=== PATIENT | female | born 1965 | race African-American/Black ===

== ENCOUNTER 2019-03-20 10:20 | Inpatient (IN) | payer BC ==
[2019-03-20] MEDS ORDERED: FENTANYL CITR 100 MCG/2 ML ONE (10:50)
[2019-03-20] MEDS ORDERED: NA CHLORIDE 0.9% 500 ML ONE (10:50)
[2019-03-20 11:01] LABS: Absolute Lymphocytes (CBC) 2.7 K/uL (0.7-4.9); Basophils % 0.4 % (0-1.3); Lymphocytes % 34.5 % (15.3-44.8); MPV 9.2 fL (7.6-11.3); Protime INR 1.11
[2019-03-20 11:13] LABS: ALT/SGPT 51 U/L (12-78); AST/SGOT 31 U/L (15-37); Albumin 4.1 g/dL (3.4-5.0); Alkaline Phosphatase 109 U/L (45-117); BUN Blood Urea Nitrogen 36 mg/dL (7-18); Bicarbonate 21 mmol/L (21-32); Bilirubin Direct 0.1 mg/dL (0-0.2); Bilirubin Total 0.2 mg/dL (0.2-1.0); Glucose Level 126 mg/dL (74-106); Magnesium 1.7 mg/dL (1.8-2.4); NT PRO-BNP 192 pg/mL (<125); Potassium 4.9 mmol/L (3.5-5.1); Protein, Total 8.5 g/dL (6.4-8.2); Sodium Level 140 mmol/L (136-145); Troponin (Emerg Dept Use Only) < 0.02 ng/mL (0.0-0.045)
--- NOTE | 2019-03-20 11:14 | RAD REPORT ---
EXAM DESCRIPTION: Bucky Single View03/20/2019 11:00 am CLINICAL HISTORY: Chest pain COMPARISON: 2010 FINDINGS: The lungs appear clear of acute infiltrate. The heart is normal size Lucency within the lateral left upper quadrant abutting the diaphragm likely represent air within bow el rather than free air. This can be confirmed with a lateral upright view of the chest
--- NOTE | 2019-03-20 13:23 | EDPHYS ---
Physician Documentation [facility] Name: Yesica Almazan Age: 53 yrs Sex: Female : 1965 Arrival Date: 03/20/2019 Time: 10: Bed 6 Private MD: Odin Steele H ED Physician Milton Frias HPI: 03/20 13:13 This 53 yrs old Black Female presents to ER via Wheelchair with complaints of Chest jr8 Pain. 13:13 The patient or guardian reports chest pain that is located primarily in the substernal jr8 area. Onset: acutely, today. The pain radiates to the left arm, the left shoulder, left neck, left jaw. Associated signs and symptoms: Pertinent positives: dizziness, nausea, near-syncope. The chest pain is described as a pressure. Duration: The patient or guardian reports a single episode, that is still ongoing. Modifying factors: The symptoms are alleviated by nothing. the symptoms are aggravated by nothing. Severity of pain: At its worst the pain was moderate in the emergency department the pain is unchanged. The patient has not experienced similar symptoms in the past. The patient has not recently seen a physician. Historical: - Allergies: 10:30 Keflex; la1 - PMHx: 10:30 Hypertension; High Cholesterol; Hypothyroidism; GERD; la1 - Immunization history:: Adult Immunizations up to date. - Social history:: Smoking status: Patient/guardian denies using tobacco. - Ebola Screening: : No symptoms or risks identified at this time. ROS: 13:13 Eyes: Negative for injury, pain, redness, and discharge, ENT: Negative for injury, jr8 pain, and discharge, Neck: Negative for injury, pain, and swelling, Respiratory: Negative for shortness of breath, cough, wheezing, and pleuritic chest pain, Abdomen/GI: Negative for abdominal pain, nausea, vomiting, diarrhea, and constipation, Back: Negative for injury and pain, MS/Extremity: Negative for injury and deformity, Skin: Negative for injury, rash, and discoloration. 13:13 Cardiovascular: Positive for chest pain, Negative for edema, orthopnea, palpitations, paroxysmal nocturnal dyspnea. 13:13 Neuro: Positive for near syncope. Exam: 13:13 Eyes: Pupils equal round and reactive to light, extra-ocular motions intact. Lids and jr8 lashes normal. Conjunctiva and sclera are non-icteric and not injected. Cornea within normal limits. Periorbital areas with no swelling, redness, or edema. ENT: Nares patent. No nasal discharge, no septal abnormalities noted. Tympanic membranes are normal and external auditory canals are clear. Oropharynx with no redness, swelling, or masses, exudates, or evidence of obstruction, uvula midline. Mucous membranes moist. Neck: Trachea midline, no thyromegaly or masses palpated, and no cervical lymphadenopathy. Supple, full range of motion without nuchal rigidity, or vertebral point tenderness. No Meningismus. Cardiovascular: Regular rate and rhythm with a normal S1 and S2. No gallops, murmurs, or rubs. Normal PMI, no JVD. No pulse deficits. Respiratory: Lungs have equal breath sounds bilaterally, clear to auscultation and percussion. No rales, rhonchi or wheezes noted. No increased work of breathing, no retractions or nasal flaring. Abdomen/GI: Soft, non-tender, with normal bowel sounds. No distension or tympany. No guarding or rebound. No evidence of tenderness throughout. Back: No spinal tenderness. No costovertebral tenderness. Full range of motion. Skin: Warm, dry with normal turgor. Normal color with no rashes, no lesions, and no evidence of cellulitis. MS/ Extremity: Pulses equal, no cyanosis. Neurovascular intact. Full, normal range of motion. Neuro: Awake and alert, GCS 15, oriented to person, place, time, and situation. Cranial nerves II-XII grossly intact. Motor strength 5/5 in all extremities. Sensory grossly intact. Cerebellar exam normal. Normal gait. 13:13 Constitutional: The patient appears alert, awake, in obvious pain, uncomfortable. jr8 Vital Signs: 10:31 BP 69 / 52; Pulse 66; Resp 16; Temp 97.6; Pulse Ox 98% on R/A; Weight 59.87 kg; Height la1 5 ft. 1 in. (154.94 cm); 10:44 BP 96 / 58; Pulse 67; Resp 22; Pulse Ox 100% on R/A; ph 11:50 BP 95 / 59; Pulse 65; Resp 18; Pulse Ox 97% on R/A; ph 13:00 BP 89 / 51; Pulse 59; Resp 18; Pulse Ox 97% on R/A; ph 14:18 BP 96 / 60; Pulse 66; Resp 20; Pulse Ox 100% on R/A; ph 15:02 BP 93 / 51; Pulse 63; Resp 18; Temp 97.4; Pulse Ox 98% on R/A; ph 15:42 BP 94 / 54; Pulse 62; Resp 18; Temp 97.4; Pulse Ox 99% on R/A; ph 10:31 Body Mass Index 24.94 (59.87 kg, 154.94 cm) MDM: 10:40 Patient medically screened. jr8 13:13 The patient was not given aspirin in the Emergency Department. Patient reports taking jr8 aspirin within the past 24 hours. Data reviewed: vital signs, nurses notes, lab test result(s), EKG, radiologic studies, plain films, ultrasound. Data interpreted: Pulse oximetry: on room air is 97 %. Interpretation: normal. Counseling: I had a detailed discussion with the patient and/or guardian regarding: the historical points, exam findings, and any diagnostic results supporting the discharge/admit diagnosis, lab results, radiology results, the need for further work-up and treatment in the hospital. ED course: Patients pain has improved. Discussed case with radiology and nephrology along with Dr. Frias. Based on current assessment and renal function, will hold on aortogram and will do echo and US of aorta for now. Will admit to hospitalist . 03/20 10:40 Order name: Basic Metabolic Panel; Complete Time: 11: in03/20 10:40 Order name: CBC with Diff; Complete Time: :03/20 10:40 Order name: LFT's; Complete Time: 11:03/20 10:40 Order name: Magnesium; Complete Time: 11:03/20 10:40 Order name: NT PRO-BNP; Complete Time: 11: in03/20 10:40 Order name: PT-INR; Complete Time: 11:03/20 10:40 Order name: Troponin (emerg Dept Use Only); Complete Time: 11:03/20 10:40 Order name: XRAY Chest (1 view); Complete Time: 11:03/20 11:28 Order name: Echo w/ Doppler [facility] 03/20 11:28 Order name: US Aorta Ivc Iliacs Complete; Complete Time: 14:37 [facility] 03/20 13:59 Order name: CT Abd/Pelvis - Without Contrast [facility] 03/20 14:51 Order name: CT; Complete Time: 15:02 EDMS 03/20 10:40 Order name: EKG; Complete Time: 10:42 [facility] 03/20 10:40 Order name: Cardiac monitoring; Complete Time: 10:44 [facility] 03/20 10:40 Order name: EKG - Nurse/Tech; Complete Time: 10:44 in03/20 10:40 Order name: IV Saline Lock; Complete Time: 10:44 in03/20 10:40 Order name: Labs collected and sent; Complete Time: 10:44 in03/20 10:40 Order name: O2 Per Protocol; Complete Time: 10:44 in03/20 10:40 Order name: O2 Sat Monitoring; Complete Time: 10:44 la1 Administered Medications: 10:58 Drug: NS 0.9% 500 ml Route: IV; Rate: bolus; Site: right antecubital; ph 13:54 Follow up: Response: No adverse reaction; IV Status: Completed infusion; IV Intake: ph 500ml 10:58 Drug: fentaNYL (PF) 25 mcg {Note: RASS 0.} Route: IVP; Site: right antecubital; ph 11:30 Follow up: Response: No adverse reaction ph 11:48 Drug: fentaNYL (PF) 25 mcg Route: IVP; Site: right antecubital; ph 12:30 Follow up: Response: No adverse reaction; RASS: Alert and Calm (0) ph 13:52 Drug: NS 0.9% 1000 ml Route: IV; Rate: 1000 ml; Site: right antecubital; ph 15:15 Follow up: Response: No adverse reaction; IV Status: Completed infusion; IV Intake: ph 1000ml Disposition: 16:14 Co-signature as Attending Physician, Milton Frias MD. rn Disposition: 03/20/19 13:22 Hospitalization ordered by Juancho Guzmán for Inpatient Admission. Preliminary diagnosis are Chest pain, unspecified, Hypotension, Acute kidney failure. - Bed requested for Intensive Care Unit. - Status is Inpatient Admission. ph - Condition is Stable. - Problem is new. - Symptoms have improved. UTI on Admission? No Signatures: Dispatcher [employer] EDWA Zee Garner Milton Antonio MD MD rn Roszak, Josh, PA PA jr8 Andres Gandhi RN RN la1 Rosaura Castillo RN RN ph Corrections: (The following items were deleted from the chart) 12:38 11:11 Angio Aorta For Dissection+CT.RAD.BRZ ordered. EDWA EDMS 13:14 13:13 Eyes: Pupils equal round and reactive to light, extra-ocular motions intact. Lids jr8 and lashes normal. Conjunctiva and sclera are non-icteric and not injected. Cornea within normal limits. Periorbital areas with no swelling, redness, or edema. ENT: Nares patent. No nasal discharge, no septal abnormalities noted. Tympanic membranes are normal and external auditory canals are clear. Oropharynx with no redness, swelling, or masses, exudates, or evidence of obstruction, uvula midline. Mucous membranes moist. Neck: Trachea midline, no thyromegaly or masses palpated, and no cervical lymphadenopathy. Supple, full range of motion without nuchal rigidity, or vertebral point tenderness. No Meningismus. Cardiovascular: Regular rate and rhythm with a normal S1 and S2. No gallops, murmurs, or rubs. Normal PMI, no JVD. No pulse deficits. Respiratory: Lungs have equal breath sounds bilaterally, clear to auscultation and percussion. No rales, rhonchi or wheezes noted. No increased work of breathing, no retractions or nasal flaring. Abdomen/GI: Soft, non-tender, with normal bowel sounds. No distension or tympany. No guarding or rebound. No evidence of tenderness throughout. Back: No spinal tenderness. No costovertebral tenderness. Full range of motion. Skin: Warm, dry with normal turgor. Normal color with no rashes, no lesions, and no evidence of cellulitis. MS/ Extremity: Pulses equal, no cyanosis. Neurovascular intact. Full, normal range of motion. Neuro: Awake and alert, GCS 15, oriented to person, place, time, and situation. Cranial nerves II-XII grossly intact. Motor strength 5/5 in all extremities. Sensory grossly intact. Cerebellar exam normal. Normal gait. jr8 13:48 13:22 Hospitalization Ordered by Juancho Guzmán DO for Inpatient Admission. Preliminary jr8 diagnosis is Chest pain, unspecified; Hypotension; Acute kidney failure. Bed requested for Telemetry/MedSurg (Inpatient). Status is Inpatient Admission. Condition is Stable. Problem is new. Symptoms have improved. UTI on Admission? No. jr8 14:21 13:48 03/20/2019 13:22 Hospitalization Ordered by Juancho Guzmán DO for Inpatient bd Admission. Preliminary diagnosis is Chest pain, unspecified; Hypotension; Acute kidney failure. Bed requested for Intensive Care Unit. Status is Inpatient Admission. Condition is Stable. Problem is new. Symptoms have improved. UTI on Admission? No. jr8 15:42 14:21 03/20/2019 13:22 Hospitalization Ordered by Juancho Guzmán DO for Inpatient ph Admission. Preliminary diagnosis is Chest pain, unspecified; Hypotension; Acute kidney failure. Bed requested for Intensive Care Unit. Status is Inpatient Admission. Condition is Stable. Problem is new. Symptoms have improved. UTI on Admission? No. bd
--- NOTE | 2019-03-20 13:23 | ER ---
Nurse's Notes [facility] Name: Yesica Almazan Age: 53 yrs Sex: Female : 1965 Arrival Date: 03/20/2019 Time: 10:21 Bed 6 Private MD: Odin Steele H Diagnosis: Chest pain, unspecified;Hypotension;Acute kidney failure Presentation: 03/20 10:30 Presenting complaint: Patient states: Started having heaviness in my chest at 0400, la1 took ASA 243, pain went away for about 15 minutes and came back. Transition of care: patient was not received from another setting of care. Onset of symptoms was March 20, 2019. Risk Assessment: Do you want to hurt yourself or someone else? Patient reports no desire to harm self or others. Initial Sepsis Screen: Does the patient meet any 2 criteria? No. Patient's initial sepsis screen is negative. Does the patient have a suspected source of infection? No. Patient's initial sepsis screen is negative. Care prior to arrival: None. 10:30 Method Of Arrival: Wheelchair la1 10:30 Acuity: ASTON 2 la1 Historical: - Allergies: 10:30 Keflex; la1 - PMHx: 10:30 Hypertension; High Cholesterol; Hypothyroidism; GERD; la1 - Immunization history:: Adult Immunizations up to date. - Social history:: Smoking status: Patient/guardian denies using tobacco. - Ebola Screening: : No symptoms or risks identified at this time. Screenin:46 Abuse screen: Denies threats or abuse. Denies injuries from another. Nutritional ph screening: No deficits noted. Tuberculosis screening: No symptoms or risk factors identified. Fall Risk None identified. Assessment: 10:33 Reassessment: EKG in triage at this time. la1 10:45 General: Appears in no apparent distress. uncomfortable, slender, well groomed, ph Behavior is calm, cooperative, appropriate for age, Denies fever, feeling ill. Pain: Complains of pain in mid-sternal area Pain radiates to left arm and jaw Quality of pain is described as pressure, Pain began 0400 this morning. Neuro: Level of Consciousness is awake, alert, obeys commands, Oriented to person, place, time, situation. Cardiovascular: Reports chest pain, diaphoresis, lightheadedness, nausea, shortness of breath, Capillary refill < 3 seconds in bilateral fingers Patient's skin is warm and dry. Chest pain quality is pressure, is located in anterior chest wall radiates to left arm(s) jaw(s). Respiratory: Airway is patent Respiratory effort is even, unlabored. GI: Reports nausea, vomiting. Derm: Skin is intact, Skin is pink, warm \T\ dry. 11:49 Reassessment: Patient appears in no apparent distress at this time. Patient and/or ph family updated on plan of care and expected duration. Pain level reassessed. Patient is alert, oriented x 3, equal unlabored respirations, skin warm/dry/pink. Pt resting quietly, awaiting US and CT scan. 12:45 Reassessment: Patient appears in no apparent distress at this time. Patient and/or ph family updated on plan of care and expected duration. Pain level reassessed. Patient is alert, oriented x 3, equal unlabored respirations, skin warm/dry/pink. 13:46 Reassessment: Patient appears in no apparent distress at this time. Patient and/or ph family updated on plan of care and expected duration. Pain level reassessed. Patient is alert, oriented x 3, equal unlabored respirations, skin warm/dry/pink. Dr Guzmán at bedside to speak w/ pt. 15:14 Reassessment: Patient appears in no apparent distress at this time. Patient and/or ph family updated on plan of care and expected duration. Pain level reassessed. Patient is alert, oriented x 3, equal unlabored respirations, skin warm/dry/pink. Report called to Estela GALLOWAY in ICU, pt to be taken to ICU via stretcher. Vital Signs: 10:31 BP 69 / 52; Pulse 66; Resp 16; Temp 97.6; Pulse Ox 98% on R/A; Weight 59.87 kg; Height la1 5 ft. 1 in. (154.94 cm); 10:44 BP 96 / 58; Pulse 67; Resp 22; Pulse Ox 100% on R/A; ph 11:50 BP 95 / 59; Pulse 65; Resp 18; Pulse Ox 97% on R/A; ph 13:00 BP 89 / 51; Pulse 59; Resp 18; Pulse Ox 97% on R/A; ph 14:18 BP 96 / 60; Pulse 66; Resp 20; Pulse Ox 100% on R/A; ph 15:02 BP 93 / 51; Pulse 63; Resp 18; Temp 97.4; Pulse Ox 98% on R/A; ph 15:42 BP 94 / 54; Pulse 62; Resp 18; Temp 97.4; Pulse Ox 99% on R/A; ph 10:31 Body Mass Index 24.94 (59.87 kg, 154.94 cm) la1 ED Course: 10:21 Patient arrived in ED. mr 10:22 Odin Steele DO is Private Physician. mr 10:31 Triage completed. la1 10:32 Arm band placed on left wrist. la1 10:40 Jose L Sampson PA is PHCP. jr8 10:40 Milton Frias MD is Attending Physician. jr8 10:41 EKG done, by office automation technician. reviewed by Jose L WAGONER. sm3 10:43 Rosaura Castillo, RN is Primary Nurse. ph 10:46 Patient has correct armband on for positive identification. Placed in gown. Bed in low ph position. Call light in reach. Side rails up X2. athletic monitor on. Pulse ox on. NIBP on. Door closed. Noise minimized. Warm blanket given. Head of bed elevated. 10:46 Inserted saline lock: 20 gauge in right antecubital area, using aseptic technique. ph Blood collected. Patient maintains SpO2 saturation greater than 95% on room air. 11:01 XRAY Chest (1 view) In Process Unspecified. EDMS 11:59 Radiology exam delayed due to on hold per Jose L. hr 12:46 Echocardiogram with Doppler done by compliance technician. tc 13:21 Juancho Guzmán DO is Hospitalizing Provider. jr8 13:52 No provider procedures requiring assistance completed. Patient admitted, IV remains in ph place. 14:12 US Aorta Ivc Iliacs Complete In Process Unspecified. EDMS Administered Medications: 10:58 Drug: NS 0.9% 500 ml Route: IV; Rate: bolus; Site: right antecubital; ph 13:54 Follow up: Response: No adverse reaction; IV Status: Completed infusion; IV Intake: ph 500ml 10:58 Drug: fentaNYL (PF) 25 mcg {Note: RASS 0.} Route: IVP; Site: right antecubital; ph 11:30 Follow up: Response: No adverse reaction ph 11:48 Drug: fentaNYL (PF) 25 mcg Route: IVP; Site: right antecubital; ph 12:30 Follow up: Response: No adverse reaction; RASS: Alert and Calm (0) ph 13:52 Drug: NS 0.9% 1000 ml Route: IV; Rate: 1000 ml; Site: right antecubital; ph 15:15 Follow up: Response: No adverse reaction; IV Status: Completed infusion; IV Intake: ph 1000ml Intake: 13:54 IV: 500ml; Total: 500ml. ph 15:15 IV: 1000ml; Total: 1500ml. ph Outcome: 13:22 Decision to Hospitalize by Provider. yesika 15:41 Admitted to ICU accompanied by nurse, accompanied by tech, via stretcher, room 7, on ph monitor, with chart, Report called to Estela GALLOWAY 15:41 critical 15:41 Instructed on the need for admit. 15:42 Patient left the ED. ph Signatures: Dispatcher [employer] Roxanne Lee Haley hr Roszak, Josh, CIARAN PA jrAlba Rojas, health and wellness sales consultant EKG Ttc Andres Gandhi RN RN la1 Rosaura Castillo RN RN Deanna Mathew3
[2019-03-20] MEDS ORDERED: NA CHLORIDE 0.9% 1,000 ML ONE (13:39)
--- NOTE | 2019-03-20 14:22 | RAD REPORT ---
EXAM DESCRIPTION: US - Aorta Ivc Iliacs Complete - 03/20/2019 2:11 pm CLINICAL HISTORY: hypotension;Chest pain COMPARISON: Renal Ultrasound-Complete dated 09/07/2016 FINDINGS: Visualize aspects of the abdominal aorta are normal in size. There is no finding to suspec t dissection. No free fluid collection. IMPRESSION: Negative study.
--- NOTE | 2019-03-20 14:23 | P.HP ---
Certification for Inpatient Patient admitted to: Inpatient With expected LOS: >2 Midnights Patient will require the following post-hospital care: None Practitioner: I am a practitioner with admitting privileges, knowledge of patient current condition, hospital course, and medical plan of care. Services: Services provided to patient in accordance with Admission requirements found in Title 42 Section 412.3 of the Code of Federal Regulations Patient History Date of Service: 03/20/19 Primary Care Provider: Dr. Steele; Cardiology-Dr. Stone Reason for admission: Chest pain, fatigue History of Present Illness: 53-year-old female presented to the emergency room with chest pain, fatigue. Patient with history of hypertension, hyperlipidemia, hypothyroidism and GERD with hiatal hernia. Patient woke up this morning with substernal chest pain around 4:00 a.m.. It woke her up from sleep. She rated the pain about a 7/10. Pain would radiate to the arms and back. Sensation to chest was a heaviness. She had some nausea. Upon getting up from bed she did feel lightheaded and dizzy. She had extreme fatigue. She took 3 aspirin without any improvement. Some shortness of breath noted. Over the past month, new medication includes Arb inhibitor-telmisartan. This was started about 1 month ago by Cardiology-Dr. Stone. She already takes Bisproprolol and Aldactone. She also reported some mild epigastric pain. She has a history of GERD. She reports some blood over the past 6 months from her rectum. She has been constipated. Last EGD colonoscopy done several years ago was unremarkable per patient. She came to the ER for further evaluation. In the ER patient was found to be hypotensive with blood pressure systolic around 70. She was given 2 boluses of normal saline. Blood pressure improved to 90-95 systolic with a map of 65. Patient shows a BUN of 36, creatinine 2.59 with a GFR of 23. Previous lab in 2017 showed creatinine 1.05 with a BUN of 16 and GFR 66. CBC unremarkable. Sodium 140, potassium 4.9. Magnesium low at 1.7. Troponin unremarkable. BMP 192. Chest x-ray she appears unremarkable. Abdominal aortic ultrasound unremarkable. CT abdomen pelvis pending at this time. Patient was admitted to ICU for further evaluation and treatment. When I saw the patient in the ER, she appeared stable. She did not appear septic. Blood pressures remain low, clinically stable. Patient reports a history of diabetes but no longer takes medication since she has lost weight. She does not take any nonsteroidal anti-inflammatories. She does report some problems with reflux. She does not check her blood pressures on a regular basis. Recent rotator cuff repair done November 2018. Allergies No Known Allergies Allergy (Unverified 08/28/16 22:09) Home medications list reviewed: Yes - Past Medical/Surgical History Diabetic: Yes -: Diabetes mellitus type 2, diet controlled -: Hypertension -: Chronic renal disease, stage 2 -: Hypothyroidism -: Hyperlipidemia -: GERD with hiatal hernia -: Right rotator cuff repair -: Hysterectomy -: Tummy tuck -: Tubal ligation -: Cholecystectomy Psychosocial/ Personal History: Patient is . She has 2 children. 1 . 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 - Family History Mother -: Heart disease, Hypertension, Diabetes - Social History Smoking Status: Never smoker Alcohol use: Yes CD- Drugs: No Caffeine use: Yes Place of Residence: Home Review of Systems General: Weakness, Malaise, As per HPI Eyes: Unremarkable ENT: Unremarkable Respiratory: Shortness of Breath, As per HPI Cardiovascular: Chest Pain, Light Headedness, As per HPI Gastrointestinal: Abdominal Pain, Constipation, As per HPI Genitourinary: Unremarkable Musculoskeletal: Unremarkable Integumentary: Unremarkable Neurological: Weakness, As per HPI Lymphatics: Unremarkable Physical Examination - Physical Exam General: Alert, In no apparent distress, Oriented x3, Cooperative HEENT: Atraumatic, Normocephalic, PERRLA, Other (Mild dry mucous membranes) Neck: Supple, No Thyromegaly Respiratory: Clear to auscultation bilaterally, Normal air movement Cardiovascular: Normal pulses, Regular rate/rhythm Gastrointestinal: Normal bowel sounds, Soft and benign, Non-distended, No masses , No rebound, No guarding, Tenderness (Mild pain to the epigastric region with deep palpation) Musculoskeletal: No erythema, No tenderness, No warmth Integumentary: No tenderness/swelling, No erythema, No warmth, No cyanosis Neurological: Normal speech, Normal strength at 5/5 x4 extr, Normal tone, Normal affect - Studies Laboratory Data (last 24 hrs) 03/20/19 10:40: PT 13.0 H, INR 1.11 03/20/19 10:40: WBC 7.8, Hgb 13.6, Hct 41.0, Plt Count 229 03/20/19 10:40: Sodium 140, Potassium 4.9, BUN 36 H, Creatinine 2.59 H, Glucose 126 H, Magnesium 1.7 L, Total Bilirubin 0.2, AST 31, ALT 51, Alkaline Phosphatase 109 Assessment and Plan - Plan Impression: Chest pain with hypotension likely related to medications Acute on chronic renal failure stage IV likely related to medication Epigastric pain likely related to GERD with hiatal hernia Diabetes mellitus type 2, diet controlled Hypothyroidism Hyperlipidemia Plan: Chest pain with hypotension likely related to medications: Patient admitted to ICU for closer monitoring. Blood pressures improved with IV fluid bolus in the emergency room. Will continue with aggressive IV fluid hydration. Suspect hypotension related to multiple blood pressure medication. Patient recently started telmisartan. Will hold telmisartan, Aldactone and Bispropanolol. Will monitor telemetry and cardiac enzymes. Will check echocardiogram, renal ultrasound to further evaluate. CT scan of the abdomen and pelvis without contrast pending at this time. DVT prophylaxis-SCDs started. Will consult cardiology and nephrology for further recommendation. Continue to monitor renal function. Patient may require fluid boluses of IV fluid. If severe patient may require vasopressor. Anticipate discharge in the next 3-5 days pending clinical improvement. Acute on chronic renal failure stage IV likely related to medication: Previous lab reviewed. GFR 66 in 2017. Now with acute renal failure related to medication-Aldactone and Arb inhibitor. Will hold both medication. Continue with IV fluids. Will obtain lab. Consult Nephrology to further evaluate. Await recommendation. Epigastric pain likely related to GERD with hiatal hernia: Abdominal ultrasound of the aorta and vessels unremarkable. Will obtain CT abdomen and pelvis to further evaluate. Likely underlying GERD with hiatal hernia. Hemoglobin stable at this time. Will provide PPI. Patient will likely require EGD in the future with her GI specialist. Diabetes mellitus type 2, diet controlled: Patient has good control of her diabetes with diet. She has lost significant amount weight. Previously on metformin. She no longer takes this medication. She stop medication-metformin 1 year ago. Hypothyroidism: Will check tsh and free T4. Restart home medication. Hyperlipidemia: Will check fasting lipid panel. Will hold medication at this time. Discharge Plan: Home Plan to discharge in: Greater than 2 days - Advance Directives Does patient have a Living Will: No Does patient have a Durable POA for Healthcare: No - Code Status/Comfort Care Code Status Assessed: Yes (Patient is full code) Time Spent Managing Pts Care (In Minutes): 55
--- NOTE | 2019-03-20 14:44 | RAD REPORT ---
EXAM DESCRIPTION: CT - Abdomen Pelvis Wo Contrast - 03/20/2019 2:34 pm CLINICAL HISTORY: Abdominal pain. ABD PAIN COMPARISON: Stone Protocol dated 08/28/2016 TECHNIQUE: CT imaging of the abdomen and pelvis was performed without contrast. Solid organ, bowel a nd vascular assessment is limited due to lack of IV and oral contrast. All CT scans are performed using dose optimization technique as appropriate and may include automated exposure control or mA/KV adjustment according to patient size. FINDINGS: The lower lung guillaume are clear.Cholecystectomy clips. The liver, spleen, pancreas, adrenal glands and kidneys are within normal limits for a limited non-co ntrast examination.15 mm benign-appearing right renal cyst. No bowel obstruction, free air, free fluid or abscess. The appendix is normal. Mild lower lumbar degenerative changes. IMPRESSION: No acute intra-abdominal or pelvic findings. A limited non-contrast examination was performed as detailed.
--- NOTE | 2019-03-20 14:52 | EKG ---
Test Date: 2019-03-20 Test Time: 10:38:37 [employer] Stock Clerk: JOSE MARIA MEASUREMENT RESULTS: Intervals: Rate: 68 [place]: 144 QRSD: 84 QT: 390 QTc: 414 [place]: P: 74 AZ: 144 QRS: 40 T: 72 INTERPRETIVE STATEMENTS: Normal sinus rhythm Normal ECG Compared to ECG 12/09/2014 15:23:56 No significant changes Electronically Signed On 03-20-19 14:51:41 CDT by Rahul French
--- NOTE | 2019-03-20 15:00 | ECHO ---
HEIGHT: 5 ft 1 in WEIGHT: 132 lb oz DATE OF STUDY: 03/20/[address]: Toni Sampson 2-DIMENSIONAL: YES M.MODE: YES DOPPLER: YES COLOR FLOW: YES TDS: NO PORTABLE: NO DEFINITY: NO BUBBLE STUDY: NO DIAGNOSIS: CHEST PAIN CARDIAC HISTORY: CATHERIZATION: NO SURGERY: NO PROSTHETIC VALVE: NO PACEMAKER: NO MEASUREMENTS (cm) DIASTOLIC (NORMALS) SYSTOLIC (NORMALS) IVSd 0.8 (0.6-1.2) LA Diam (1.9-4.0) LVEF 79% LVIDd 3.5 (3.5-5.7) LVIDs 1.9 (2.0-3.5) %FS 47% LVPWd 1.0 (0.6-1.2) Ao Diam (2.0-3.7) 2 DIMENSIONAL ASSESSMENT: RIGHT ATRIUM: NORMAL LEFT ATRIUM: NORMAL RIGHT VENTRICLE: NORMAL LEFT VENTRICLE: NORMAL TRICUSPID VALVE: NORMAL MITRAL VALVE: NORMAL PULMONIC VALVE: NORMAL AORTIC VALVE: NORMAL PERICARDIAL EFFUSION: NONE AORTIC ROOT: NORMAL LEFT VENTRICULAR WALL MOTION: NORMAL DOPPLER/COLOR FLOW: PHYSIOLOGIC TRICUSPID REGURGITATION. NORMAL RIGHT VENTRICULAR SYSTOLIC PRESSURE. COMMENTS: NORMAL 2D ECHOCARDIOGRAM WITH DOPPLER. TECHNOLOGIST: Vick TOBIN
[2019-03-20] MEDS ORDERED: ACETAMINOPHEN 500 MG TAB PO PRN (15:12)
[2019-03-20] MEDS ORDERED: ONDANSETRON 4 MG/2 ML VIAL IV PRN (15:12)
[2019-03-20] MEDS ORDERED: TRAMADOL HCL 50 MG TAB PO PRN (16:30)
[2019-03-20] MEDS: D5 0.45 NS 1,000 ML IV SCH (17:14)
[2019-03-20] MEDS ORDERED: NA CHLORIDE 0.9% 500 ML IV ONE (19:30)
--- NOTE | 2019-03-20 19:39 | CON ---
Chief Complaint: In general, feeling bad for 3 months, especially the last week. This morning, she started having pressure in her chest. History Of Present Illness: Ms. Almazan had right rotator cuff surgery in November. Ever since then, maegan mccann has been feeling bad. It got progressively worse. She drinks a gallon of water per day, but has n ot been eating much, and feeling listless, normally would have gone back to work except she never rec overed from her surgery. She denies tobacco use, excessive alcohol use. She takes blood pressure me dicines, but has not taken any blood pressure medicines today. I think we are little bit unsure as t o exactly what medicine she has been taking. Since she has been here in the hospital, cardiac enzyme s, EKG and echocardiography are all normal. Her blood pressure when she first came in was 69/52. Th e most recent blood pressure 95/59. She has had a 1.5 L bolus of saline. She is treated for hyperte nsion, dyslipidemia, hypothyroidism, and gastroesophageal reflux disease. Dr. Steele is her primary car e physician. She reports no allergies. Physical Examination: General: She is slender in build, alert, oriented, pleasant, not in any distress. Lungs: Clear. There is no carotid bruit. Heart: Within normal limits. Extremities: Normal distal pulses. No cyanosis, clubbing, or edema. Laboratory Data: Reveals a creatinine of 2.59. I do not have any recent blood tests on her from any other source. Her GFR is estimated to be 23. Troponin is less than 0.02. N-terminal proBNP is 192 , which is basically normal. She does not have a history of malignancy. She has a history of multip le childbirths, tubal ligation, hysterectomy, and cholecystectomy. Impression: My impression is that the patient is probably not having an acute coronary syndrome. He r renal failure is of utmost importance and hypotension. Most likely the renal failure coupled with the blood pressure medicine she is on, probably contributed to her hypotension. As much water she dr inks, I think, she is actually dehydrated, but she may be malnourished based on what she tells us. I will recommend that we get the list of her home medicines and see if we can get her blood pressure e levated. See if we can get her renal function to improve and Nephrology consult is pending for looki ng for signs of multiple myeloma and also looking for signs of hepatitis, although the liver function tests and prothrombin time are both normal. Some imaging studies, no doubt, will be done on the sung er and kidneys. Thank you very much for your kind referral of Ms. Almazan. I will follow her with you. MAEGAN/DOLORES Voice ID: [id number] Report ID: [id number]
[2019-03-20 19:58] LABS: CKMB Creatine Kinase MB 1.7 ng/mL (0.3-3.6); Creatine Phosphokinase 112 U/L (26-192); Troponin I < 0.02 ng/mL (0.0-0.045)
[2019-03-20] MEDS ORDERED: MAGNESIUM SULFATE 1 gm IVPB 1 GM/100 ML BAG IV ONE (20:24)
[2019-03-20 22:27] LABS: Urine Appearance CLEAR; Urine Bilirubin NEGATIVE (NEG); Urine Blood NEGATIVE (NEG); Urine Color YELLOW; Urine Glucose NEGATIVE (NEG); Urine Protein NEGATIVE (NEG); Urine Specific Gravity 1.015 (1.005-1.030); Urine Urobilinogen 0.2 mg/dL (0.2-1.0); Urine pH 5.5 (5.0-7.0)
[2019-03-20 22:28] LABS: Urine Microscopic Reflex ORDER UMIC
[2019-03-20 22:36] LABS: Urine Bacteria <20 /HPF (<20); Urine Culture Reflex Order REFLEXED; Urine RBC NONE SEEN /HPF (NONE SEEN)
[2019-03-20] MEDS ORDERED: TRAZODONE 50 MG TABLET PO ONE (23:10)
[2019-03-21] MEDS: D5 0.45 NS 1,000 ML IV SCH ×3 (01:12→22:15)
[2019-03-21 05:29] LABS: Basophils % 0.6 % (0-1.3); Hematocrit 32.7 % (36.0-45.0); Lymphocytes % 49.5 % (15.3-44.8); MPV 9.4 fL (7.6-11.3)
[2019-03-21 05:59] LABS: CKMB Creatine Kinase MB 1.4 ng/mL (0.3-3.6); Creatine Phosphokinase 97 U/L (26-192); Troponin I < 0.02 ng/mL (0.0-0.045)
[2019-03-21 06:00] LABS: Magnesium 1.9 mg/dL (1.8-2.4); Potassium 4.1 mmol/L (3.5-5.1); Thyroid Stimulating Hormone 0.752 uIU/mL (0.360-3.740)
[2019-03-21] MEDS: LEVOTHYROXINE SOD 0.1 MG TAB PO SCH (06:17)
[2019-03-21] MEDS: PANTOPRAZOLE 40MG TABLET PO SCH (07:40)
[2019-03-21] MEDS: HYDROCODONE/APAP 7.5/325 MG TAB PO PRN ×2 (08:40→22:13)
[2019-03-21] MEDS ORDERED: DOCUSATE NA 100 MG CAP PO PRN (09:34)
[2019-03-21 10:25] LABS: Blood Morphology Comment NOT SEEN (NOT SEEN); Platelet Estimate ADEQ
[2019-03-21] MEDS: LACTULOSE 20 GM/30 ML UCUP PO PRN (11:14)
--- NOTE | 2019-03-21 12:38 | P.PN ---
Subjective Date of Service: 03/21/19 Primary Care Provider: Dr. Steele; Cardiology-Dr. Stone Chief Complaint: Chest pain, fatigue Subjective: Improving, Doing well Physical Examination - Vital Signs Temperature: 97.0 F Blood Pressure: 103/65 Pulse: 66 Respirations: 14 Pulse Ox (%): 100 - Physical Exam General: Alert, In no apparent distress, Oriented x3, Cooperative HEENT: Atraumatic, Normocephalic, PERRLA, Mucous membr. moist/pink Neck: Supple Respiratory: Clear to auscultation bilaterally, Normal air movement Cardiovascular: Normal pulses, Regular rate/rhythm Gastrointestinal: Normal bowel sounds, Soft and benign, Non-distended, No tenderness, No masses, No rebound, No guarding Musculoskeletal: No erythema, No tenderness, No warmth Integumentary: No tenderness/swelling, No erythema, No warmth, No cyanosis Neurological: Normal speech, Normal strength at 5/5 x4 extr, Normal tone, Normal affect - Studies Medications List Reviewed: Yes Assessment & Plan Discharge Plan: Home Plan to discharge in: 24 Hours Physician Review Additional Text: Impression: Chest pain with hypotension likely related to medications Acute on chronic renal failure stage IV likely related to medication Epigastric pain likely related to GERD with hiatal hernia Diabetes mellitus type 2, diet controlled Hypothyroidism Hyperlipidemia Benign right renal cyst Plan: Chest pain with hypotension likely related to medications: Patient has significantly improved. Blood pressure now stable. Continue IV fluids. Cardiology feels this is noncardiac in nature. This is likely from dehydration and overmedication. Continue to hold telmisartan, Aldactone and Bispropanolol. CT scan abdomen unremarkable except for benign small right renal cyst. Abdominal ultrasound unremarkable. Transfer patient to the floor. Will ambulate patient. Await further recommendations from nephrology. Anticipate discharge within the next 24 hr with clinical improvement. Will discuss further with nephrology. Lab for serum protein electrophoresis, hepatitis has been sent out. Acute on chronic renal failure stage III likely related to medication: Overall improved. Previous lab reviewed. GFR 66 in 2017. Renal failure related to overmedication and dehydration. Continue IV fluids. Will discuss further with nephrology.. Epigastric pain likely related to GERD with hiatal hernia: Abdominal ultrasound of the aorta and vessels unremarkable. CT scan unremarkable. Likely underlying GERD with hiatal hernia. Continue with PPI. Patient will likely require EGD in the future with her GI specialist. Diabetes mellitus type 2, diet controlled: Patient has good control of her diabetes with diet. She has lost significant amount weight. Previously on metformin. She no longer takes this medication. She stopped medication- metformin 1 year ago. Hypothyroidism: Continue home medication. Tsh within normal range. Hyperlipidemia: Continue to hold medication Benign right renal cyst: This can be further monitored as an outpatient. Time Spent Managing Pts Care (In Minutes): 55
[2019-03-21] MEDS ORDERED: MAGNESIUM SULFATE 1 gm IVPB 1 GM/100 ML BAG IV ONE (13:16)
--- NOTE | 2019-03-21 15:30 | CON ---
Date of Consultation: 03/21/2019 Reason For Consultation: Elevated BUN and creatinine, hypotension. History Of Present Illness: This is a pleasant 53-year-old female with significant past medical hist ory of diabetes, controlled with diet; hypertension since 2009; hypothyroidism; GERD; osteoarthritis; rotator cuff, status post surgery. Patient was in her regular state of health, started having some chest pain, nausea, and vomiting without any diarrhea. For that reason, reported to the hospital, fo und to have elevation in BUN and creatinine, marginal low blood pressure, GFR was down to 23, creatin ine 2.5. For that reason, patient was admitted. Reviewing the lab for the patient, patient back in 2017 had normal kidney function. Patient denied taking any nonsteroidal, no IV contrast. Patient co ntrolling her pain with hydrocodone. Apparently, patient almost 4-6 weeks ago was placed on telmisar white and according to her, since then her nausea and vomiting get aggravated. Before that she was on spironolactone and beta-shawnee. Allergies: NO KNOWN DRUG ALLERGIES. Past Medical History: 1.Hypertension. 2.Diabetes controlled with diet. 3.Hypothyroidism. 4.Hyperlipidemia. 5.GERD. Past Surgical History: Right rotator cuff, hysterectomy, tubal ligation, cholecystectomy. Family History: Positive for hypertension, coronary artery disease. No kidney disease. Social History: Denies smoking. Occasional alcohol. Denies drug abuse. Review of Systems: Head and Neck: No red eye. No ear pain. GI: Has nausea. Has vomiting. : Has nocturia 2-3 times. PROGRAM SUPPORT ASSISTANT: No vaginal discharge. Respiratory: No shortness of breath. Cardiovascular: No chest pain. Endocrine: No polydipsia. Skin: No rash. Neurologic: No neuropathy. Musculoskeletal: Has shoulder pain. Physical Examination: Vital Signs: When I saw the patient, blood pressure 103/65. Upon admission, her blood pressure was down to the 70. Patient was maintained on IV hydration. Blood pressure medication has been stopped. Chest: Clear to auscultation. Heart: S1, S2. Regular. Abdomen: Soft, nontender. Extremities: No edema. Neurologic: Alert and oriented x3. No focal. Laboratory Data: WBC 6, H and H 11.2/32.7, platelet of 161. Upon admission, her H and H were 13.6/4 1. Sodium 143, potassium 4.1, bicarb 21, BUN 25, creatinine 1.5, calcium 8.5, magnesium 1.9. Upon a dmission, creatinine 2.5 with GFR of 23. TSH 0.7. Serum protein electrophoresis is still pending. Urinalysis; specific gravity of 1.015, negative for infection. PC ratio is still pending. Assessment And Plan: 1.Acute kidney injury secondary to prerenal, secondary to gastrointestinal loss superimposed with AR B. I agree with current IV fluid and we will monitor. 2.Obstructive uropathy. Has been ruled out. The CT was negative. 3.Hypertension, currently hypotensive. Keep holding all blood pressure medications. We will follow up. 4.Dehydration, as above. 5.Hypomagnesemia, status post supplement. We will give her another gram today. KORINA Voice ID: [id number] Report ID: [id number]
[2019-03-21 17:30] LABS: Urine Protein/Creatinine Ratio 0.23 ratio (<0.15)
--- NOTE | 2019-03-21 22:10 | PN ---
Date of Progress Note: 03/21/2019 Ms. Araujo was seen by Dr. French on 03/20/2019 for chest pain, renal failure, liver enzyme abnormal ities, and anemia. She had an echocardiogram yesterday that showed an ejection fraction of 79% with normal wall motion, no effusion. Ms. Almazan had improved dramatically. She is not having any symp toms of chest pain or shortness of breath. Nephrology is following her. The case was discussed with Dr. Guzmán. I will sign off her case for now. We will be available for questions if the need arise s. LELO/DOLORES Voice ID: [id number] Report ID: [id number]
[2019-03-22 06:05] LABS: Absolute Lymphocytes (CBC) 3.1 K/uL (0.7-4.9); Basophils % 0.7 % (0-1.3); Hematocrit 34.7 % (36.0-45.0); Lymphocytes % 58.4 % (15.3-44.8)
[2019-03-22 06:06] LABS: Albumin 2.9 g/dL (3.4-5.0); Magnesium 1.6 mg/dL (1.8-2.4); Phosphorus 2.9 mg/dL (2.5-4.9)
[2019-03-22] MEDS: LEVOTHYROXINE SOD 0.1 MG TAB PO SCH (06:30)
[2019-03-22] MEDS: PANTOPRAZOLE 40MG TABLET PO SCH (08:39)
[2019-03-22] MEDS: LACTULOSE 20 GM/30 ML UCUP PO PRN (08:42)
[2019-03-22] MEDS ORDERED: MAGNESIUM SULFATE 1 gm IVPB 1 GM/100 ML BAG IV ONE (09:00)
--- NOTE | 2019-03-22 09:14 | P.DS ---
Admission Date: 03/20/19 Discharge Date: 03/22/19 Primary Care Provider: Dr. Steele; Cardiology-Dr. Stone Disposition: ROUTINE DISCHARGE Discharge Condition: GOOD Reason for Admission: Chest pain, fatigue Consultations: Cardiology-Dr. Hills Nephrology-Dr. Zabala/Dr. Wills Procedures: CT scan:FINDINGS: The lower lung guillaume are clear.Cholecystectomy clips. The liver, spleen, pancreas, adrenal glands and kidneys are within normal limits for a limited non-contrast examination.15 mm benign-appearing right renal cyst. No bowel obstruction, free air, free fluid or abscess. The appendix is normal. Mild lower lumbar degenerative changes. IMPRESSION: No acute intra-abdominal or pelvic findings. Abdominal ultrasound: COMPARISON: Renal Ultrasound-Complete dated 09/07/2016 FINDINGS: Visualize aspects of the abdominal aorta are normal in size. There is no finding to suspect dissection. No free fluid collection. IMPRESSION: Negative study. Echocardiogram: Ejection fraction 79% LEFT VENTRICULAR WALL MOTION: NORMAL DOPPLER/COLOR FLOW: PHYSIOLOGIC TRICUSPID REGURGITATION. NORMAL RIGHT VENTRICULAR SYSTOLIC PRESSURE. COMMENTS: NORMAL 2D ECHOCARDIOGRAM WITH DOPPLER. Medical problem list: Chest pain with hypotension related to medications Acute on chronic renal failure stage II related to medication Epigastric pain likely related to GERD with hiatal hernia Diabetes mellitus type 2, diet controlled Hypothyroidism Hyperlipidemia Benign right renal cyst Chronic constipation Brief History of Present Illness: 53-year-old female presented to the emergency room with chest pain, fatigue. Patient with history of hypertension, hyperlipidemia, hypothyroidism and GERD with hiatal hernia. Patient woke up this morning with substernal chest pain around 4:00 a.m.. It woke her up from sleep. She rated the pain about a 7/10. Pain would radiate to the arms and back. Sensation to chest was a heaviness. She had some nausea. Upon getting up from bed she did feel lightheaded and dizzy. She had extreme fatigue. She took 3 aspirin without any improvement. Some shortness of breath noted. Over the past month, new medication includes Arb inhibitor-telmisartan. This was started about 1 month ago by Cardiology-Dr. Stone. She already takes Bisproprolol and Aldactone. She also reported some mild epigastric pain. She has a history of GERD. She reports some blood over the past 6 months from her rectum. She has been constipated. Last EGD colonoscopy done several years ago was unremarkable per patient. She came to the ER for further evaluation. In the ER patient was found to be hypotensive with blood pressure systolic around 70. She was given 2 boluses of normal saline. Blood pressure improved to 90-95 systolic with a map of 65. Patient shows a BUN of 36, creatinine 2.59 with a GFR of 23. Previous lab in 2017 showed creatinine 1.05 with a BUN of 16 and GFR 66. CBC unremarkable. Sodium 140, potassium 4.9. Magnesium low at 1.7. Troponin unremarkable. BMP 192. Chest x-ray she appears unremarkable. Abdominal aortic ultrasound unremarkable. CT abdomen pelvis pending at this time. Patient was admitted to ICU for further evaluation and treatment. When I saw the patient in the ER, she appeared stable. She did not appear septic. Blood pressures remain low, clinically stable. Patient reports a history of diabetes but no longer takes medication since she has lost weight. She does not take any nonsteroidal anti-inflammatories. She does report some problems with reflux. She does not check her blood pressures on a regular basis. Recent rotator cuff repair done November 2018. Hospital Course: Patient presented with chest pain and hypotension. Patient also found to have acute on chronic renal failure. This was all likely related to medication and dehydration. Patient previously on Aldactone and Bisoprolol. 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 Upon admission patient was started on IV fluid hydration. All blood pressure medication telmisartan, Aldactone and Bisoprolol were discontinued. Patient had hypotension. Her renal function recovered with IV fluids. Patient back to baseline. Patient with chronic renal disease stage II. CT abdomen/pelvis unremarkable. Echocardiogram unremarkable with normal ejection fraction. Abdominal ultrasound unremarkable except benign right renal cyst. At discharge blood pressure medications-telmisartan, Aldactone and Bisoprolol had been discontinued. Recommend to follow up with nephrology in 1-2 weeks. Recommend to recheck lab-BMP in 1 week to monitor her progress. Recommend no further use of nonsteroidal anti-inflammatories. Patient had epigastric abdominal pain upon admission. Patient with history of GERD and hiatal hernia. Abdominal ultrasound and CT scan unremarkable. At discharge will recommend to continue with Nexium 40 mg daily. Recommend follow up with GI in 2-4 weeks to further evaluate. Patient may require a EGD if pain persists. GERD diet will be provided. Patient with history of diabetes mellitus type 2. Patient was previously on medication in the distant past. Since losing weight she has been off medication -metformin. Diabetes diet controlled. Recommend follow up with her PCP to further monitor. Patient with hypothyroidism. Tsh within normal range. Patient may continue with levothyroxine 100 mcg daily. Patient with hyperlipidemia. At discharge she may continue with her medication- Crestor 20 mg daily. Patient with benign right renal cyst. This can be followed up and monitored by her PCP and nephrology. Patient had mild constipation at discharge. Will recommend to continue docusate daily. She may take MiraLax over the counter. Patient would benefit with GI evaluation and colonoscopy as an outpatient. Vital Signs/Physical Exam: Temp Pulse Resp BP Pulse Ox 96.9 F 57 20 111/60 100 03/22/19 04:00 03/22/19 04:00 03/22/19 04:00 03/22/19 04:00 03/22/19 04:00 General: Alert, In no apparent distress, Oriented x3, Cooperative HEENT: Atraumatic Neck: Supple Respiratory: Clear to auscultation bilaterally, Normal air movement Cardiovascular: Normal pulses, Regular rate/rhythm Gastrointestinal: Normal bowel sounds, Soft and benign, Non-distended, No tenderness, No masses, No rebound, No guarding Musculoskeletal: No erythema, No tenderness, No warmth Integumentary: No tenderness/swelling, No erythema, No warmth, No cyanosis Neurological: Normal speech, Normal strength at 5/5 x4 extr, Normal tone, Normal affect Laboratory Data at Discharge: WBC 5.2 K/uL (4.3-10.9) 03/22/19 05:32 Hgb 12.1 g/dL (12.0-15.0) 03/22/19 05:32 Hct 34.7 % (36.0-45.0) L 03/22/19 05:32 Plt Count 156 K/uL (152-406) 03/22/19 05:32 PT 13.0 SECONDS (9.5-12.5) H 03/20/19 10:40 INR 1.11 03/20/19 10:40 Sodium 146 mmol/L (136-145) H 03/22/19 05:32 Potassium 4.0 mmol/L (3.5-5.1) 03/22/19 05:32 BUN 11 mg/dL (7-18) 03/22/19 05:32 Creatinine 1.06 mg/dL (0.55-1.3) 03/22/19 05:32 Glucose 119 mg/dL (74-106) H 03/22/19 05:32 Phosphorus 2.9 mg/dL (2.5-4.9) 03/22/19 05:32 Magnesium 1.6 mg/dL (1.8-2.4) L 03/22/19 05:32 Total Bilirubin 0.2 mg/dL (0.2-1.0) 03/20/19 10:40 AST 31 U/L (15-37) 03/20/19 10:40 ALT 51 U/L (12-78) 03/20/19 10:40 Alkaline Phosphatase 109 U/L (45-117) 03/20/19 10:40 Troponin I < 0.02 ng/mL (0.0-0.045) 03/21/19 04:47 Triglycerides 92 mg/dL (<150) 03/21/19 04:47 Cholesterol 103 mg/dL (<200) 03/21/19 04:47 HDL Cholesterol 41 mg/dL (40-60) 03/21/19 04:47 Cholesterol/HDL Ratio 2.51 03/21/19 04:47 Home Medications: Esomeprazole Mag Trihydrate [Nexium] 40 mg PO DAILY 03/20/19 Levothyroxine Sodium 100 mcg PO DAILY 03/20/19 Rosuvastatin Calcium 20 mg PO DAILY 03/20/19 Docusate [Colace Cap*] 100 mg PO DAILY PRN #30 cap 03/22/19 New Medications: Docusate [Colace Cap*] 100 mg PO DAILY PRN #30 cap PRN Reason: Constipation Patient Discharge Instructions: 1. Recommend follow up with PCP in 1 week to follow up this hospitalization. 2. Patient presented with chest pain and hypotension. Patient also found to have acute on chronic renal failure. This was all likely related to medication and dehydration. Patient previously on Aldactone and Bisoprolol. 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 Upon admission patient was started on IV fluid hydration. All blood pressure medication telmisartan, Aldactone and Bisoprolol were discontinued. Patient had hypotension. Her renal function recovered with IV fluids. Patient back to baseline. Patient with chronic renal disease stage II. CT abdomen/pelvis unremarkable. Echocardiogram unremarkable with normal ejection fraction. Abdominal ultrasound unremarkable except benign right renal cyst. At discharge blood pressure medications-telmisartan, Aldactone and Bisoprolol had been discontinued. Recommend to follow up with nephrology in 1- 2 weeks. Recommend to recheck lab-BMP in 1 week to monitor her progress. Recommend no further use of nonsteroidal anti-inflammatories. 3. Patient had epigastric abdominal pain upon admission. Patient with history of GERD and hiatal hernia. Abdominal ultrasound and CT scan unremarkable. At discharge will recommend to continue with Nexium 40 mg daily. Recommend follow up with GI in 2-4 weeks to further evaluate. Patient may require a EGD if pain persists. GERD diet will be provided. 4. Patient with history of diabetes mellitus type 2. Patient was previously on medication in the distant past. Since losing weight she has been off medication-metformin. Diabetes diet controlled. Recommend follow up with her PCP to further monitor. 5. Patient with hypothyroidism. Tsh within normal range. Patient may continue with levothyroxine 100 mcg daily. 6. Patient with hyperlipidemia. At discharge she may continue with her medication-Crestor 20 mg daily. 7. Patient with benign right renal cyst. This can be followed up and monitored by her PCP and nephrology. 8. Patient had mild constipation at discharge. Will recommend to continue docusate daily. She may take MiraLax over the counter. Patient would benefit with GI evaluation and colonoscopy as an outpatient. Diet: Renal Activity: Ad brady Time spent managing pt's care (in minutes): 55
--- NOTE | 2019-03-22 11:09 | P.PN ---
Subjective Date of Service: 03/22/19 Primary Care Provider: Dr. Steele; Cardiology-Dr. Stone Chief Complaint: Chest pain, fatigue Subjective: Improving today no new complaints VS stable Cr normalized Cleared for discharge from nephrology point of view to hold JAIRO and F/U with nephrology clinic in 2-3 wks Physical Examination - Vital Signs Temperature: 97 F Blood Pressure: 105/56 Pulse: 61 Respirations: 16 Pulse Ox (%): 99 - Physical Exam General: In no apparent distress, Oriented x3 HEENT: Atraumatic Neck: Supple, Without JVD or thyroid abnormality Respiratory: Clear to auscultation bilaterally, Normal air movement Cardiovascular: No edema, Regular rate/rhythm, Normal S1 S2, No gallops, No rubs , No murmurs Gastrointestinal: Normal bowel sounds, Soft and benign - Studies Medications List Reviewed: Yes Assessment And Plan - Plan Acute kidney injury Due to prerenal azotemia resolved cont to hold JAIRO HTN controlled Vomiting due to GERD and hital hernia F/U with GI as an OP DM as per primary
[2019-03-24 04:08] LABS: HBsAG Nonreactive (Nonreactive)
[2019-03-25 20:06] LABS: Albumin, (SPE) 3.4 g/dL (3.8-4.8); Alpha-1-Globulins 0.3 g/dL (0.2-0.3); Alpha-2-Globulins 0.9 g/dL (0.5-0.9); INTERPRETATION REPORT
[2019-03-26 14:44] LABS: Vitamin D 1,25-Dihydroxy Total 13 pg/mL (18-72); Vitamin D,1,25-OH2, D2 <8 pg/mL
== END 2019-03-22 12:15 | disposition home or self-care (01) | DRG 312 ==
LOC: ER 10:20 → ERHOLD 13:58 → 3RD-ICU 15:16 → 4TH 03-21 10:00
PROVIDERS: ADMIT Family Medicine; ATTEND Family Medicine
DX: I95.2 Hypotension due to drugs (principal); N18.4 Chronic kidney disease, stage 4 (severe); N17.9 Acute kidney failure, unspecified; T50.0X5A Adverse effect of mineralocorticoids and their antagonists, initial encounter; Y92.009 Unspecified place in unspecified non-institutional (private) residence as the place of occurrence of the external cause; T44.7X5A Adverse effect of beta-adrenoreceptor antagonists, initial encounter; T46.5X5A Adverse effect of other antihypertensive drugs, initial encounter; R07.9 Chest pain, unspecified; E86.0 Dehydration; I12.9 Hypertensive chronic kidney disease with stage 1 through stage 4 chronic kidney disease, or unspecified chronic kidney disease; E11.22 Type 2 diabetes mellitus with diabetic chronic kidney disease; K21.9 Gastro-esophageal reflux disease without esophagitis; K44.9 Diaphragmatic hernia without obstruction or gangrene; E03.9 Hypothyroidism, unspecified; E78.5 Hyperlipidemia, unspecified; N28.1 Cyst of kidney, acquired; E83.42 Hypomagnesemia
CPT/HCPCS: 36415; 71045; 74176; 80048; 80061; 80069; 80074; 80076; 81003; 81015; 82550; 82553; 82570; 82652; 83735; 83880; 83935; 83970; 84132; 84156; 84165; 84300; 84439; 84443; 84484; 85025; 85610; 87077; 87086; 87088; 87186; 93005; 93306; 93978; 96361; 96374; 97116; 97161; 99285; J3010; J3475; J7030